=== PATIENT | female | born 1985 | race Caucasian/White ===

== ENCOUNTER 2020-06-30 17:04 | Emergency (ER) | payer MEDICAID ==
[~2020-06-30] VITALS: Ht 160 cm; Wt 65.3 kg
[2020-06-30 17:16] VITALS: Ht 160 cm; Wt 65.3 kg
[2020-06-30] MEDS ORDERED: HYDROCODONE BIT1 T51 PO ×2 (19:05→19:41)
[2020-06-30 20:10] VITALS: BP 96/54
== END 2020-06-30 20:10 | disposition home or self-care (01) ==
LOC: ED 17:04
DX: M54.42 Lumbago with sciatica, left side (principal)
CPT/HCPCS: 20552; J1885; J2001